=== PATIENT | female | born 2000 | race African-American/Black ===

== ENCOUNTER 2018-08-05 23:25 | Inpatient (IN) | payer MEDICAID ==
[~2018-08-05] VITALS: Ht 160 cm; Wt 73.9 kg
[2018-08-06] MEDS ORDERED: METHYLERGONOVINE MALEATE 0.2 MG/ML IM PRN
[2018-08-06] MEDS ORDERED: PENICILLIN G POTASSIUM 5 MMU in DEXT 5% WATER 100 ML IV NR ×2
[2018-08-06] MEDS ORDERED: LIDOCAINE HCL 1% 20ML VIAL (Pyxis) INJ INFIL SCH
[2018-08-06] MEDS ORDERED: CARBOPROST TROMETHAMINE 250 MCG/ML AMPUL IM PRN
[2018-08-06] MEDS ORDERED: MISOPROSTOL 100MCG TABLET VG SCH
[2018-08-06] MEDS ORDERED: BUTORPHANOL TARTRATE 2 MG/ML VIAL IV PRN
[2018-08-06] MEDS: DEXT 5%/LACTATED RINGERS 1,000 ML IV SCH ×3 (00:30→11:55)
[2018-08-06 00:54] LABS: CLARITY URINE CLEAR (CLEAR); COLOR URINE YELLOW (YELLOW); KETONES URINE TRACE (NEGATIVE); LEUKOCYTE ESTERASE URINE 2+ (NEGATIVE); NITRITE URINE NEGATIVE (NEGATIVE); OCCULT BLOOD URINE NEGATIVE (NEGATIVE); PH URINE 7.5 (4.5-8.0); PROTEIN URINE NEGATIVE (NEGATIVE)
[2018-08-06 01:08] LABS: *AMPHETAMINES SCREEN URINE NEGATIVE (NEGATIVE); *BARBITURATES SCREEN URINE NEGATIVE (NEGATIVE); *BENZODIAZEPINES SCREEN URINE NEGATIVE (NEGATIVE); *COCAINE SCREEN URINE NEGATIVE (NEGATIVE); CANNABINOID URINE SCREEN NEGATIVE (NEGATIVE); METHADONE URINE SCREEN NEGATIVE (NEGATIVE); OPIATES URINE SCREEN NEGATIVE (NEGATIVE); PHENCYCLIDINE URINE SCREEN NEGATIVE (NEGATIVE)
[2018-08-06 01:25] LABS: BASOPHILS % 0.6 % (0.0-2.0); EOSINOPHILS % 0.8 % (0.0-5.0); HEMOGLOBIN. 11.1 g/dL (12.0-16.0); MEAN CORPUSCULAR HEMOGLOBIN 28.3 pg (28.0-32.0); MEAN CORPUSCULAR VOLUME 84.5 fL (81.0-99.0); MONOCYTES % 7.6 % (2.0-8.0); PLATELET 164 x1000/uL (130-400); RED CELL DISTRIBUTION WIDTH 16.2 % (11.6-14.6)
[2018-08-06 01:26] LABS: INR 0.9; PARTIAL THROMBOPLASTIN TIME 29.2 sec (23.4-31.0); PROTHROMBIN TIME 9.5 sec (9.1-11.1)
[2018-08-06] MEDS ORDERED: FENTANYL CITRATE/PF 50MCG/ML 2ML VIAL ONE (02:39)
[2018-08-06] MEDS ORDERED: BUPIVACAINE HCL/NS/PF EPIDURAL 100 ML EP ONE (02:39)
[2018-08-06] MEDS ORDERED: BUPIVACAINE HCL/PF 0.25% (2.5MG/ML) 10ML ONE (02:39)
[2018-08-06] MEDS ORDERED: BUPIVACAINE HCL/NS/PF EPIDURAL 100 ML EP SCH (03:30)
[2018-08-06] MEDS: PENICILLIN G POTASSIUM 2.5 MMU in DEXTROSE 5% WATER 50 ML IV SCH ×2 (04:42→09:03)
[2018-08-06 07:58] LABS: HEPATITIS B SURFACE ANTIGEN NEGATIVE
[2018-08-06] MEDS ORDERED: DEXT 5%/LR + PITOCIN 20UNITS/L 1,000 ML IV SCH ×2 (10:16)
[2018-08-06] MEDS ORDERED: DIPHENHYDRAMINE 25MG CAPSULE PO PRN (10:30)
[2018-08-06] MEDS ORDERED: ACETAMINOPHEN WITH CODEINE 300/30MG TABLET PO PRN ×2 (10:30)
[2018-08-06] MEDS ORDERED: GLYCERIN/WITCH HAZEL LEAF MEDICATED PAD TOP PRN (10:30)
[2018-08-06] MEDS ORDERED: LANOLIN OINT 0.25 GM TUBE TOP PRN (10:30)
[2018-08-06] MEDS ORDERED: BISACODYL 10MG SUPP PR PRN (10:30)
[2018-08-06] MEDS ORDERED: TETANUS, DIPHTHERIA, PERTUSSIS VAC/PF 0.5ML (>7YR OLD) IM ONE (10:30)
[2018-08-06] MEDS ORDERED: HEMORRHOIDAL SUPP PR PRN (10:30)
[2018-08-06] MEDS ORDERED: BENZOCAINE/LANOLIN/ALOE VERA SPRAY TOP PRN (10:30)
[2018-08-06] MEDS ORDERED: INFLUENZA VIRUS VACCINE(AFLURIA) 0.5ML SYR IM ONE (10:30)
[2018-08-06 13:30] VITALS: BP 100/50
[2018-08-06] MEDS: IBUPROFEN 400MG TABLET PO PRN (14:54)
[2018-08-06 15:04] LABS: HEMATOCRIT. 31.2 % (36.0-48.0); HEMOGLOBIN. 10.4 g/dL (12.0-16.0); MEAN CORPUSCULAR HEMOGLOBIN 28.1 pg (28.0-32.0); MEAN CORPUSCULAR VOLUME 84.2 fL (81.0-99.0); MEAN PLATELET VOLUME 8.8 fl (7.4-10.4); PLATELET 149 x1000/uL (130-400); RED CELL DISTRIBUTION WIDTH 16.2 % (11.6-14.6)
[2018-08-06 16:00] VITALS: BP 106/61
[2018-08-06 16:20] LABS: PLATELET ESTIMATE NORMAL
[2018-08-06] MEDS: SIMETHICONE 80MG TABLET CHEW PO SCH ×2 (18:33→21:09)
[2018-08-06 20:05] VITALS: BP 99/54
[2018-08-06] MEDS: DOCUSATE SODIUM 100MG CAPSULE PO SCH (21:28)
[2018-08-06 23:24] VITALS: BP 99/54
[2018-08-07 01:26] VITALS: BP 101/53
[2018-08-07] MEDS: IBUPROFEN 400MG TABLET PO PRN ×3 (02:04→15:59)
[2018-08-07 04:10] VITALS: BP 109/54
[2018-08-07 08:37] VITALS: BP 101/53
[2018-08-07] MEDS: PRENATAL VIT/FE FUMARATE/FA TABLET PO SCH (09:54)
[2018-08-07] MEDS: SIMETHICONE 80MG TABLET CHEW PO SCH ×3 (09:55→21:34)
[2018-08-07] MEDS ORDERED: FERROUS SULFATE 325MG TABLET PO SCH (12:10)
[2018-08-07 16:10] VITALS: BP 91/51
[2018-08-07 20:30] VITALS: BP 105/52
[2018-08-07] MEDS: DOCUSATE SODIUM 100MG CAPSULE PO SCH (21:34)
[2018-08-08 04:00] VITALS: BP 109/56
[2018-08-08 08:00] VITALS: BP 99/61
[2018-08-08] MEDS: PRENATAL VIT/FE FUMARATE/FA TABLET PO SCH (08:29)
[2018-08-08] MEDS: SIMETHICONE 80MG TABLET CHEW PO SCH (08:30)
[2018-08-08 11:50] VITALS: BP 99/61
[2018-08-08] MEDS ORDERED: TETANUS, DIPHTHERIA, PERTUSSIS VAC/PF 0.5ML (>7YR OLD) IM ONE (12:00)
== END 2018-08-08 15:00 | disposition home or self-care (01) | DRG 560 ==
LOC: OBSVTOIN 23:25 → L&D 23:25 → 7EST PP/OB 08-06 12:31
PROVIDERS: ADMIT Specialist; ATTEND Specialist
PROC: 10E0XZZ Delivery of Products of Conception, External Approach (ICD-10-PCS; principal; 2018-08-05)
PROC: 0HQ9XZZ Repair Perineum Skin, External Approach (ICD-10-PCS; 2018-08-05)
PROC: 3E0R3BZ Introduction of Anesthetic Agent into Spinal Canal, Percutaneous Approach (ICD-10-PCS; 2018-08-05)
PROC: 00HU33Z Insertion of Infusion Device into Spinal Canal, Percutaneous Approach (ICD-10-PCS; 2018-08-05)
DX: O99.02 Anemia complicating childbirth (principal); D64.9 Anemia, unspecified; O70.0 First degree perineal laceration during delivery; Z37.0 Single live birth; Z3A.37 37 weeks gestation of pregnancy
CPT/HCPCS: 36415; 80305; 81003; 85025; 85610; 85730; 86592; 86703; 86762; 86850; 86900; 87340; 90715; 99281; C1893; J0595; J2540; J2590; J3010; J3490; J7060; J7120; J7121; A4315

== ENCOUNTER 2019-07-11 16:35 | Emergency (ER) | payer MEDICAID ==
[~2019-07-11] VITALS: Ht 160 cm; Wt 68.0 kg
[2019-07-11 16:39] VITALS: BP 104/60
== END 2019-07-11 21:56 | disposition left against medical advice (07) ==
LOC: ER 16:35
DX: R53.1 Weakness (principal); Z53.21 Procedure and treatment not carried out due to patient leaving prior to being seen by health care provider

== ENCOUNTER 2019-07-14 08:32 | Emergency (ER) | payer MEDICAID ==
[~2019-07-14] VITALS: Ht 160 cm; Wt 68.0 kg
[2019-07-14 08:39] VITALS: BP 117/69
[2019-07-14 09:58] LABS: CLARITY URINE TURBID (CLEAR); COLOR URINE YELLOW (YELLOW); KETONES URINE NEGATIVE (NEGATIVE); LEUKOCYTE ESTERASE URINE 1+ (NEGATIVE); NITRITE URINE NEGATIVE (NEGATIVE); OCCULT BLOOD URINE 1+ (NEGATIVE); PROTEIN URINE NEGATIVE (NEGATIVE); SPECIFIC GRAVITY URINE 1.021 (1.005-1.030)
[2019-07-14] MEDS ORDERED: CEFTRIAXONE SODIUM 250 MG/VIAL IM ONE (11:15)
[2019-07-14] MEDS ORDERED: AZITHROMYCIN 500 MG TABLET PO ONE (11:15)
== END 2019-07-14 11:59 | disposition home or self-care (01) ==
LOC: ER 08:32
DX: N39.0 Urinary tract infection, site not specified (principal)
CPT/HCPCS: 81003; 81025; 93005; 99284; J0696